=== PATIENT | male | born 1950 | race Hispanic/Latino ===

== ENCOUNTER 2017-02-15 18:27 | Emergency (ER) | payer OTHER, MEDICARE ==
[2017-02-15] MEDS ORDERED: Ketorolac Tromethamine 30 MG/ML VIAL ONE (19:11)
--- NOTE | 2017-02-15 23:03 | RAD ---
CHEST TWO VIEWS 02/15/17 The heart is upper limits of normal in size. The mediastinum shows no widening or shift. The lungs a re fully inflated and clear. No effusions or pneumothoraces are seen. While no rib fractures were visible, dedicated rib films would be needed to be more certain. There a re a few equivocal findings around the left 6th and 7th ribs, but they are not definitive for fractu re. IMPRESSION: No acute findings. If further workup is deemed necessary, dedicated rib films should be obtained. POS: HOME
== END 2017-02-15 19:15 | disposition home or self-care (01) ==
LOC: BURERS 18:27
DX: S23.41XA Sprain of ribs, initial encounter (principal); E78.5 Hyperlipidemia, unspecified; I25.10 Atherosclerotic heart disease of native coronary artery without angina pectoris; I10 Essential (primary) hypertension; J45.909 Unspecified asthma, uncomplicated; Z86.73 Personal history of transient ischemic attack (TIA), and cerebral infarction without residual deficits; W18.30XA Fall on same level, unspecified, initial encounter
CPT/HCPCS: 71020; 93005; 96372; J1885

== ENCOUNTER 2017-03-12 20:59 | Emergency (ER) | payer OTHER ==
[2017-03-12] MEDS ORDERED: Ondansetron HCl/PF 4 MG/2 ML Vial ONE (21:15)
[2017-03-12] MEDS ORDERED: Labetalol HCl 100 MG/20 ML VIAL ONE (21:36)
[2017-03-12] MEDS ORDERED: Fentanyl 100 MCG/2 ML VIAL ONE (21:43)
[2017-03-12 21:44] LABS: #Basophils 0.1 thou/uL (0.0-0.2); #Eosinphils 0.1 thou/uL (0.0-0.7); #Lymphocytes 1.2 thou/uL (1.20-3.40); #Monocytes 0.3 thou/uL (0.11-0.59); %Basophils 1.2 % (0.0-1.0); %Eosinophils 2.3 % (0.0-10.0); %Lymphocytes 20.4 % (21.0-51.0); %Monocytes 4.9 % (0.0-10.0); %Neutrophils 71.1 % (42.0-75.0); Hemoglobin 14.5 g/dL (14.0-18.0); Mean Corpuscular HGB CONC 33.1 g/dL (32.0-36.0); Mean Corpuscular Hemoglobin 30.8 pg (27.0-31.0); Mean Platelet Volume 5.4 fL (7.4-10.4); Platelet Count 221 thou/uL (130-400); RBC Distribution Width 14.9 % (11.5-14.5); Red Blood Cell (RBC) Count 4.72 mill/uL (4.70-6.10); White Blood Cell (WBC) Count 5.6 thou/uL (4.8-10.8)
[2017-03-12 21:45] LABS: Bilirubin Negative (Negative); Blood, Urine Moderate (Negative); Clarity Clear (Clear); Glucose, Urine (Dipstick) 500 mg/dL (Negative); Leukocyte Negative (Negative); Nitrite Negative (Negative); Protein, Urine (Dipstick) > or equal to 300 mg/dL (Neg-Trace); Urobilinogen 0.2 mg/dL (0.2-1.0)
[2017-03-12 21:55] LABS: RBC/HPF 0-3 HPF (0-3); Squamous Epithelial 0-3 HPF (0-3); WBC/HPF 0-3 HPF (0-3)
[2017-03-12 21:56] LABS: Bacteria/HPF Rare-Few HPF (None Seen); Crystals/HPF 1+ AMORPH URATES HPF (Negative)
[2017-03-12 21:57] LABS: ALT (SGPT) 12 U/L (8-55); AST (SGOT) 17 U/L (5-34); Albumin 4.8 g/dL (3.4-4.8); Alkaline Phosphatase 92 U/L (40-150); Anion Gap 23 mmol/L (10-20); BUN (Urea Nitrogen) 50 mg/dL (8.4-25.7); Calc. Creatinine Clearance 0 mL/min (70-130); Calcium 10.1 mg/dL (7.8-10.44); Carbon Dioxide 21 mmol/L (23-31); Chloride 99 mmol/L (98-107); Estimated GFR-MDRD 6; Globulin 3.6 g/dL (2.4-3.5); Glucose 309 mg/dL (80-115); Lipase 152 U/L (8-78); Potassium 4.7 mmol/L (3.5-5.1); Protein, Total 8.4 g/dL (5.8-8.1); Sodium 138 mmol/L (136-145)
[2017-03-12 21:58] LABS: CKMB 2.2 ng/mL (0-6.6); Troponin I 0.061 ng/mL (< 0.028)
[2017-03-12] MEDS ORDERED: Nitroglycerin 2% Ointment 1 INCH/1 GM Packet ONE (22:30)
--- NOTE | 2017-03-13 07:02 | RAD ---
PORTABLE CHEST: Date: 03/12/17 An AP portable film at 2251 hours is compared with the 02/15/17 study. FINDINGS: The heart is normal in size. No infiltrate, effusion, or vascular congestion seen. Slight prominence of the left hilum is thought to be all due to pulmonary artery and made more so by the patient bein g turned slightly. IMPRESSION: No acute thoracic finding. POS: HOME
== END 2017-03-12 23:40 | disposition short-term general hospital (02) ==
LOC: BURERS 20:59
DX: K85.90 Acute pancreatitis without necrosis or infection, unspecified (principal); E10.65 Type 1 diabetes mellitus with hyperglycemia; I10 Essential (primary) hypertension; R79.89 Other specified abnormal findings of blood chemistry; E78.5 Hyperlipidemia, unspecified; I25.10 Atherosclerotic heart disease of native coronary artery without angina pectoris; J45.909 Unspecified asthma, uncomplicated; F32.9 Major depressive disorder, single episode, unspecified
CPT/HCPCS: 71010; 80053; 81003; 81015; 82553; 83690; 84484; 85025; 93005; 94760; 96374; 96375; J2405; J3010